=== PATIENT | female | born 1960 | race Caucasian/White ===

== ENCOUNTER 2016-12-23 14:40 | Emergency (ER) | payer BC, OTHER ==
[~2016-12-23] VITALS: Ht 162.6 cm; Wt 70.0 kg
[~2016-12-23 14:40] MED LIST: CEPH-443 PO; CITA10TA84 PO; INSU100C SC; LANT3I SC; LEVO75TA5 PO
[2016-12-23 14:51] VITALS: Ht 162.6 cm; Wt 70.0 kg
[2016-12-23 15:56] LABS: ADD SCAN DIFF NO
[2016-12-23 15:57] LABS: URINE BLOOD (Dip) POC 2+ (NEGATIVE)
[2016-12-23 16:01] LABS: BASOPHIL # 0.1 10^3/ul (0.0-0.1); BASOPHILS % 1.2 % (0.0-2.0); EOSINOPHILS # 0.3 10^3/ul (0.0-0.5); EOSINOPHILS % 3.5 % (0.0-7.0); HEMATOCRIT 43.7 % (37.0-47.0); HEMOGLOBIN 15.4 g/dl (12.0-16.0); LYMPHOCYTES # 2.6 10^3/ul (0.8-2.9); LYMPHOCYTES % 27.3 % (15.0-51.0); MEAN CORPUSCULAR HEMOGLOBIN 31.9 pg (29.0-33.0); MEAN CORPUSCULAR HGB CONC 35.2 g/dl (32.0-37.0); MEAN CORPUSCULAR VOLUME 90.5 fl (82.0-101.0); MEAN PLATELET VOLUME 10.2 fl (7.4-10.4); MONOCYTE # 0.8 10^3/ul (0.3-0.9); NEUTROPHIL # 5.7 10^3/ul (1.6-7.5); NEUTROPHILS % 59.6 % (39.0-77.0); PLATELET COUNT 196 10^3/UL (140-415); RED BLOOD COUNT 4.83 10^6/ul (4.20-5.40); RED CELL DISTRIBUTION WIDTH 12.2 % (11.5-14.5); WHITE BLOOD COUNT 9.5 10^3/ul (4.8-10.8)
--- NOTE | 2016-12-23 16:09 | RADRPT ---
PROCEDURE: US Pelvis CLINICAL INDICATION: vaginal bleeding. post menopausal TECHNIQUE: Multiple sonographic images of the pelvis were obtained utilizing a transabdominal and endovaginal technique. The images were reviewed on a PACS workstation. COMPARISON: None. FINDINGS: The uterus measures 7.4 x 3.9 x 4.4 cm. The endometrial echo complex measures 6 mm in thickness. N o discrete lesion is seen. Bilateral ovaries are not visualized. There are no abnormal adnexal masses. No significant pelvic free fluid is identified. IMPRESSION: The endometrium measures 6 mm which is mildly thickened for a postmenopausal patient. Consider endo metrial sampling and / or follow-up ultrasound for further evaluation. Bilateral ovaries are not visualized. There are no abnormal adnexal masses. RPTAT: EE Physician Preston Date Time Electronically viewed and signed by Physician Preston on 12/23/2016 16:08 /
--- NOTE | 2016-12-23 16:20 | ERD ---
ER Documentation Chief Complaint Date/Time DATE: 12/23/16 TIME: 16:17 Chief Complaint last menses 5 years ago, today with vag bleed x 3 daYS HPI This is a 56 year-old female who presents emergency department today complaining of vaginal bleeding for the past 3 days. States her last mental cycle was 5 days ago. States she has some vaginal itching. States that the bleeding is only when she wipes. States she is concerned because she had tumor markers on her liver and has a history of hepatitis B C and thyroid problems in addition to diabetes. States she has pain with intercourse. States she has one sexual partner but only has intercourse occasionally. States he has an appointment on the her primary care doctor. ROS All systems reviewed and are negative except as per history of present illness. Medications Home Meds Active Scripts Nitrofurantoin Monohyd Macrocr* (Macrobid*) 100 Mg Capsr, 100 MG PO BID for 7 Days, CAP Prov:EM MORTENSEN PA-C 12/23/16 Clotrimazole* (Clotrimazole* AF) 1% - 30 Gm Cream.gm., 1 APPLIC TOP BID for 7 Days, #1 TUB Prov:EM MORTENSEN PA-C 12/23/16 Cephalexin* (Keflex*) 500 Mg Capsule, 500 MG PO QID for 7 Days, CAP Prov:TRACY HEAD 12/22/15 Reported Medications Insulin Glargine* (Lantus*) 100 Unit/Ml Soln, 10 UNIT SC QHS, #1 VIAL 10/05/15 Insulin Lispro (Humalog) 100 U/Ml Cartridge, 6 UNITS SC AC MEALS, EA 10/05/15 Citalopram Hydrobromide* (Citalopram Hydrobromide*) 10 Mg Tablet, 10 MG PO QHS, TAB 09/09/14 Levothyroxine Sodium* (Levothyroxine Sodium*) 75 Mcg Tablet, 75 MCG PO AC BREAKFAST, TAB 09/09/14 Allergies Allergies: Coded Allergies: No Known Allergy (Verified , 12/23/16) PMhx/Soc History of Surgery: Yes (c-sections ) Anesthesia Reaction: No Hx Neurological Disorder: Yes (castaneda, dizziness x3 years) Hx Respiratory Disorders: Yes (COPD) Hx Cardiac Disorders: Yes (CONGENITAL HEART MURMUR ) Hx Psychiatric Problems: Yes Hx Miscellaneous Medical Probl: Yes (cirrhosis of the liver; dm; thyroid problems, HEP B, Hep C) Hx Alcohol Use: No Hx Substance Use: Yes (marijuanna) Hx Tobacco Use: Yes Smoking Status: Former smoker Physical Exam Vitals Vital Signs Date Time Temp Pulse Resp B/P Pulse Ox O2 Delivery O2 Flow Rate FiO2 12/23/16 14:51 98.1 71 18 157/89 99 Physical Exam Const: Talkative, no acute distress Head: Atraumatic Eyes: Normal Conjunctiva ENT: Normal External Ears, Nose and Mouth. Neck: Full range of motion..~ No meningismus. Resp: Clear to auscultation bilaterally Cardio: Regular rate and rhythm, no murmurs Abd: Soft, non tender, non distended. Normal bowel sounds Pelvic: Unable to perform pelvic exam secondary to pain with trying to insert speculum. No evidence of discharge. Skin: No petechiae or rashes Back: No midline or flank tenderness Ext: No cyanosis, or edema Neur: Awake and alert Psych: Normal Mood and Affect Result Diagram: 12/23/16 1555 Results 24 hrs Laboratory Tests Test 12/23/16 15:55 12/23/16 16:02 White Blood Count 9.510^3/ul Red Blood Count 4.8310^6/ul Hemoglobin 15.4g/dl Hematocrit 43.7% Mean Corpuscular Volume 90.5fl Mean Corpuscular Hemoglobin 31.9pg Mean Corpuscular Hemoglobin Concent 35.2g/dl Red Cell Distribution Width 12.2% Platelet Count 92390^3/UL Mean Platelet Volume 10.2fl Neutrophils % 59.6% Lymphocytes % 27.3% Monocytes % 8.0% Eosinophils % 3.5% Basophils % 1.2% Nucleated Red Blood Cells % 0.0/100WBC Neutrophils # 5.710^3/ul Lymphocytes # 2.610^3/ul Monocytes # 0.810^3/ul Eosinophils # 0.310^3/ul Basophils # 0.110^3/ul Nucleated Red Blood Cells # 0.010^3/ul Bedside Urine pH (LAB) 7.0 Bedside Urine Protein (LAB) Trace Bedside Urine Glucose (UA) Negative Bedside Urine Ketones (LAB) Negative Bedside Urine Blood 2+ Bedside Urine Nitrite (LAB) Negative Bedside Urine Leukocyte Esterase (L 1+ DIAGNOSTIC IMAGING REPORT Patient: CHARISMA BOYLE : 1960 Age: 56 Sex: F MR #: [id number] [facility]: [id number] DOS: 12/23/16 0000 Ordering MD: EM MORTENSEN PA-C Location: [facility] Room/Bed: PROCEDURE: US Pelvis CLINICAL INDICATION: vaginal bleeding. post menopausal TECHNIQUE: Multiple sonographic images of the pelvis were obtained utilizing a transabdominal and endovaginal technique. The images were reviewed on a PACS workstation. COMPARISON: None. FINDINGS: The uterus measures 7.4 x 3.9 x 4.4 cm. The endometrial echo complex measures 6 mm in thickness. No discrete lesion is seen. Bilateral ovaries are not visualized. There are no abnormal adnexal masses. No significant pelvic free fluid is identified. IMPRESSION: The endometrium measures 6 mm which is mildly thickened for a postmenopausal patient. Consider endometrial sampling and / or follow-up ultrasound for further evaluation. Bilateral ovaries are not visualized. There are no abnormal adnexal masses. RPTAT: EE Physician Preston Date Time Electronically viewed and signed by Physician Preston on 12/23/2016 16:08 RA/ CC: EM MORTENSEN PA-C Procedures/MDM This 56-year-old female presents to the emergency department today complaining of vaginal bleeding for the past 3 days. Patient states she last had her menstrual cycle 5 years ago. Patient did indicate that she had a history of anemia and therefore did obtain a CBC, UA and pelvic ultrasound CBC shows no elevated white blood cell count. She is not anemic. Platelets are within normal limits. UA shows 1+ leukocyte esterase and 2+ blood. Negative nitrites. Urine was sent for gonorrhea and chlamydia. I will treat the patient with Macrobid for possible urinary tract infection given the itchiness as well as hematuria and patient's history of diabetes. Attempt to do a pelvic exam on the patient however I was unable to insert the speculum secondary to pain. There is no evidence of gross bleeding or hemorrhage Ultrasound shows the endometrium measures 6 mm which is mildly thickened for a postmenopausal patient. Bilateral ovaries are not visualized. There are no abnormal adnexal masses. There is no significant pelvic free fluid identified. This endometrial thickening may be that because the patient's abnormal vaginal bleeding Patient was instructed to follow-up with her primary care physician as planned in 2 days for referral to [facility]. I will also give her a list of [facility] referrals. Patient will be given a prescription for Chlortrimazole cream for the vaginal itching however this may also be secondary to atrophic vaginitis. Have explained this to her. All patient's questions were answered. At this time the patient is stable for discharge and outpatient management. Patient should follow up with their PCP in the next 1-2 days. They may return to the emergency department sooner for any persistent or worsening of symptoms. Patient understood and agreed with the plan. Departure Diagnosis: Primary Impression: Vaginal bleeding Condition: EM Muñoz PA-C Dec 23, 2016 16:20
[2016-12-23] MEDS ORDERED: CLOT30CR24 TOP (16:29)
[2016-12-23] MEDS ORDERED: NITR-58 PO (16:29)
== END 2016-12-23 16:42 | disposition home or self-care (01) ==
LOC: FTE 14:40
DX: N93.9 Abnormal uterine and vaginal bleeding, unspecified (principal); R10.2 Pelvic and perineal pain; E11.9 Type 2 diabetes mellitus without complications; J44.9 Chronic obstructive pulmonary disease, unspecified; Z79.4 Long term (current) use of insulin; Z87.891 Personal history of nicotine dependence
CPT/HCPCS: 76830; 76856; 81003; 85025; 87591; Z7502

== ENCOUNTER 2018-04-14 11:57 | Emergency (ER) | END 2018-04-14 15:42 | disposition home or self-care (01) ==